=== PATIENT | male | born 1995 | race Caucasian/White ===

== ENCOUNTER 2018-10-04 19:58 | Emergency (ER) | payer OTHER ==
[~2018-10-04] VITALS: Ht 180.3 cm; Wt 106.6 kg
[~2018-10-04 19:58] MED LIST: PEPCID40 MG PO; ZOFRAN4 MG PO
== END 2018-10-04 22:44 | disposition home or self-care (01) ==
LOC: ER 19:58
DX: R05 Cough (principal)